=== PATIENT | female | born 1960 | race Caucasian/White ===

== ENCOUNTER 2017-10-23 17:12 | Emergency (ER) | payer OTHER ==
[~2017-10-23] VITALS: Ht 154.9 cm; Wt 79.4 kg
--- NOTE | 2017-10-23 17:53 | ER.PDOC ---
General Chief Complaint: Toothache Stated Complaint: TOOTH PAIN Time seen by MD: 17:50 Source: patient Exam Limitations: no limitations History of Present Illness Initial Comments Toothache for past couple of days. Timing/Duration: gradual Associated Symptoms: toothache, jaw pain (R) Severity: moderate Allergies: Coded Allergies: Penicillins (Verified Allergy, Unknown, MILD, 10/23/17) Past Medical History Medical History: GERD Surgical History: appendectomy Social History Smoking: non-smoker Alcohol Use: occassionally Drug Use: none Constitutional: no symptoms reported Mouth: see HPI Respiratory: no symptoms reported Cardiovascular: no symptoms reported Gastrointestinal: no symptoms reported Musculoskeletal: no symptoms reported All Other Systems: Reviewed and Negative Physical Exam General Appearance: alert, no distress Head/Neck: head nml inspection, neck nml inspection, trachea midline, no lymphadenopathy, thyroid nml Mouth: dental tenderness (right lower last molar) Ears/Nose: nml inspection Respiratory: no resp. distress, lungs clear CVS: reg. rate & rhythm, heart sounds nml Abdomen: non-tender, no organomegaly Extremities: non-tender, ROM nml Skin Exam: Normal Color, Warm/Dry NEURO/PSYCH: oriented X3, mood/effect nml Departure Time of Disposition: 17:52 Disposition: 01 HOME, SELF-CARE Impression: Primary Impression: Pain, dental Condition: Stable Referrals: PCP,UNKNOWN (PCP) PRIMARY CARE PROVIDER Additional Instructions: Tramadol Clindamycin F/U with your Dentist LALO Duration or Time Spent with Pa: 20 mins LES BASURTO MD Oct 23, 2017 17:53
[2017-10-23 18:05] VITALS: BP 151/94
== END 2017-10-23 18:05 | disposition home or self-care (01) ==
LOC: ER 17:12
DX: K08.89 Other specified disorders of teeth and supporting structures (principal); K21.9 Gastro-esophageal reflux disease without esophagitis; Z88.0 Allergy status to penicillin
CPT/HCPCS: 99283

== ENCOUNTER 2018-04-23 18:34 | Emergency (ER) | payer OTHER ==
[~2018-04-23] VITALS: Ht 162.6 cm; Wt 83.9 kg
[2018-04-23 18:50] VITALS: BP 150/100
--- NOTE | 2018-04-23 19:22 | ER.PDOC ---
General Chief Complaint: Earache Stated Complaint: EAR ACHE,SORE THROAT Time seen by MD: 19:00 Source: patient Exam Limitations: no limitations History of Present Illness Initial Comments 57 year old white female with ear discomfort, sore throat, watery nasal discharge and non productive cough for four days. No fever, no chills, no nausea and no vomiting. Timing/Duration: gradual Severity: moderate Associated Symptoms: earache, runny nose, sinus pain/drainage, sore throat, allergy Allergies: Coded Allergies: Penicillins (Verified Allergy, Unknown, MILD, 10/23/17) Constitutional: no symptoms reported EENTM: see HPI Respiratory: see HPI Cardiovascular: no symptoms reported Gastrointestinal: no symptoms reported Genitourinary: no symptoms reported Musculoskeletal: no symptoms reported Skin: no symptoms reported Psychiatric/Neurological: no symptoms reported Endocrine: no symptoms reported Hematologic/Lymphatic: no symptoms reported Past Medical History Medical History: GERD, hypertension Surgical History: appendectomy, tubal LMP (females 10-50): tubal Social History Smoking: non-smoker Alcohol Use: none Drug Use: none Physical Exam General Appearance: alert, no distress Eye: eyes nml inspection, lids & conjunct. nml, PERRL, no nystagmus Ear: ear nml Nose: rhinorrhea, mucosal edema Throat: pharyngeal erythema Neck: nml inspection, supple Respiratory: no resp.distress, breath sounds nml Abdomen: non-tender, no organomegaly CVS: reg rate & rhythm, heart sounds nml Skin: color nml, no rash, warm/dry Extremities: non-tender, nml ROM NEURO/PSYCH: CN's nml as tested Departure Time of Disposition: 19:20 Disposition: HOME, SELF-CARE Impression: Primary Impression: Allergic rhinitis Qualified Codes: J30.9 - Allergic rhinitis, unspecified Condition: Stable Referrals: PCP,UNKNOWN (PCP) PRIMARY CARE PROVIDER Additional Instructions: OTC Claritin prn RTER prn Follow up PCP Duration or Time Spent with Pa: NBA JUAREZ MD Apr 23, 2018 19:22
[2018-04-23 20:35] VITALS: BP 150/100
== END 2018-04-23 20:12 | disposition home or self-care (01) ==
LOC: ER 18:34
DX: J30.9 Allergic rhinitis, unspecified (principal); I10 Essential (primary) hypertension; K21.9 Gastro-esophageal reflux disease without esophagitis; Z88.0 Allergy status to penicillin; Z98.51 Tubal ligation status; Z90.49 Acquired absence of other specified parts of digestive tract
CPT/HCPCS: 99282

== ENCOUNTER 2018-07-08 20:44 | Emergency (ER) | payer OTHER ==
[~2018-07-08] VITALS: Ht 154.9 cm; Wt 86.2 kg
[2018-07-08 20:56] VITALS: BP 148/107
[2018-07-08] MEDS ORDERED: XYLOCAINE 2%-EPI 1:100,000 ONE (21:03)
--- NOTE | 2018-07-08 21:12 | ER.PDOC ---
General Chief Complaint: General Complaint Stated Complaint: L EAR CYST/INFECTION Time seen by MD: 20:58 Source: patient Exam Limitations: no limitations History of Present Illness Initial Comments There is a cystic, abscess formation/mass on left mastoid area, that has been growing for a few days. Has a history of previous similar condition on same area Timing/Duration: 1 week Severity: moderate Location: facial Quality: painful Identified Cause: no Allergies: Coded Allergies: Penicillins (Verified Allergy, Unknown, MILD, 10/23/17) Past Medical History Medical History: GERD, hypertension Surgical History: appendectomy, knee, tubal LMP (females 10-50): postmenopause Social History Smoking: non-smoker Alcohol Use: none Drug Use: none Constitutional: no symptoms reported EENTM: no symptoms reported Respiratory: no symptoms reported Cardiovascular: no symptoms reported Gastrointestinal: no symptoms reported Skin: see HPI All Other Systems: Reviewed and Negative Physical Exam General Appearance: alert, no distress Skin: warm/dry, nml color, abscess, tender indurated area Location: face (left), neck Character: asymmetric, erythematous With: warmth, tenderness, swelling, thickening, inflammation Extremities: non-tender, nml ROM, no edema EENT: eyes nml inspection, lips/gums nml, pharynx nml Neck: trachea midline, no swelling Respiratory: no resp. distress, breath sounds nml CVS: reg. rate & rhythm, heart sounds nml Abdomen: non-tender, no organomegaly Rectal: non-tender NEURO/PSYCH: oriented x 3, CN's nml as tested, motor nml, sensation nml, mood/ affect nml Incision and Drainage Incision and Drainage : Site: Left mastoid area Blade Size: 11 I & D Procedure: betadine prep, sterile dressing applied, irrigated cavity w /saline Departure Time of Disposition: 21:19 Disposition: 01 HOME, SELF-CARE Impression: Primary Impression: Sebaceous cyst of ear Condition: Stable Patient Instructions: Abscess, Abscess, Care After, Cyst Removal Referrals: PCP,UNKNOWN (PCP) PRIMARY CARE PROVIDER Duration or Time Spent with Pa: KENIA PALMER MD Jul 08, 2018 21:12
--- NOTE | 2018-07-08 21:15 | NUR ---
DRESSING NEOSPORIN AND BAND-AID APPLIED BEHIND LEFT EAR PER ORDERS.
[2018-07-08] MEDS ORDERED: TRIPLE ANTIBIOTIC OINTMENT TP ONE (21:18)
[2018-07-08 21:55] VITALS: BP 148/107
== END 2018-07-08 21:51 | disposition home or self-care (01) ==
LOC: ER 20:44
DX: L72.3 Sebaceous cyst (principal); K21.9 Gastro-esophageal reflux disease without esophagitis; Z88.0 Allergy status to penicillin; I10 Essential (primary) hypertension; Z98.51 Tubal ligation status; Z90.49 Acquired absence of other specified parts of digestive tract
CPT/HCPCS: 10060; 99283

== ENCOUNTER 2021-07-07 14:18 | Emergency (ER) | payer BC, OTHER ==
[~2021-07-07] VITALS: Ht 154.9 cm; Wt 81.6 kg
--- NOTE | 2021-07-07 14:30 | NUR ---
ARRIVAL PT ARRIVED TO ED WITH C/O EARACHE, SORETHROAT, CHEST PAIN WITH COUGHING AND HEADACHE FOR 3 WEEKS. PT TESTED NEGATIVE FOR COVID THIS AM. BEDSIDE MONITORS APPLIED. VITAL SIGNS STABLE. BED IN LOW LOCKED POSITION.
[2021-07-07 14:36] VITALS: BP 154/63
[2021-07-07 14:39] VITALS: BP 154/63
[2021-07-07 15:22] LABS: BASOPHIL # 0.1 10^3/uL (0.0-0.1); EOSINOPHIL # 0.2 10^3/uL (0.0-0.2); EOSINOPHIL % 2.6 % (0.0-5.0); LYMPHOCYTES # 2.23 10^3/uL1 (1.0-4.8); LYMPHOCYTES % 31.8 % (24.0-44.0); MEAN CORP HGB 27.7 pg (26-34); MONOCYTES # 0.5 10^3/uL (0.3-0.8); MONOCYTES % 6.7 % (5.0-12.0); NEUTROPHIL # 4.1 10^3/uL (1.8-7.7); NEUTROPHILS % 57.8 % (41.0-85.0); PLATELET COUNT 242 10^3/uL (150-400); RED CELL DISTRIBUTION WIDTH 12.8 % (11.5-14.5)
--- NOTE | 2021-07-07 15:22 | PCM.EKG ---
[facility] Test Date: 2021-07-07 Test Time: 15:20:03 Pat Name: NIGEL SPENCER Department: [id number] Room: Gender: F Political Organizer: KRUNAL : 1960 Requested By: ESPERANZA LEWIS Order Number: [id number] Reading MD: Esperanza Lewis Measurements Intervals [place] Rate: 55 P: 57 AL: 139 QRS: 12 QRSD: 98 T: 48 QT: 472 QTc: 452 Interpretive Statements Sinus rhythm Low voltage, precordial leads No previous ECG available for comparison Electronically Signed On 07-21-2021 8:20:41 CDT by Esperanza Lewis Please click the below link to view image of tracing.
[2021-07-07] MEDS ORDERED: NS 1000ML 1,000 ML ONE (15:23)
[2021-07-07] MEDS ORDERED: NS 1000ML 1,000 ML IV ONE (15:30)
[2021-07-07 15:38] LABS: CALCIUM 8.9 mg/dL (8.4-10.5); CARBON DIOXIDE 28.8 mmol/L (20.0-32)
--- NOTE | 2021-07-07 16:15 | ER.PDOC ---
General Chief Complaint: Sore Throat Stated Complaint: COUGH,SORE THROAT,EAR PAIN Time seen by MD: 15:50 Source: patient Exam Limitations: no limitations History of Present Illness Initial Comments Patient is a 60-year-old woman who presents the emergency department with a chief complaint I have having cough, postnasal drip, intermittent fevers for the past 2 weeks. Patient states she has had a dry cough and nasal congestion with postnasal drip. She states she is had mild nausea but denies any vomiting or diarrhea. She denies any body aches. 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 She states she has some mild shortness of breath. She denies any chest pain. She denies any black or bloody stools. She denies any dysuria, frequency, urgency, hematuria. She denies any unusual headache. She denies any difficulty with speech or swallowing. She denies any visual changes. She denies any numbness or weakness to the arms or legs. Timing/Duration: gradual, other (2 to 3 weeks, Worse today) Additional Context: She states her children were sick 3 weeks ago and she got sick about the same time. Severity: moderate Associated Symptoms: fever/chills, runny nose, sinus pain/drainage, cough, chest pain (None), mild SOB Worsen By: other (Nothing) Allergies: Coded Allergies: Penicillins (Verified Allergy, Unknown, MILD, 10/23/17) EENTM: nose congestion; denies throat pain Respiratory: cough, shortness of breath Cardiovascular: denies chest pain; lightheadedness; denies palpitations, denies syncope Gastrointestinal: denies abdominal pain, denies diarrhea, denies nausea, denies rectal bleeding, denies vomiting Genitourinary: denies dysuria, denies hematuria Musculoskeletal: denies muscle pain Skin: denies rash Psychiatric/Neurological: denies anxiety Hematologic/Lymphatic: denies easy bleeding All Other Systems: Reviewed and Negative Past Medical History Medical History: GERD Surgical History: appendectomy, knee, tubal LMP (females 10-50): postmenopause Family History Significant Family History: hypertension Social History Smoking: non-smoker Alcohol Use: none Drug Use: none Physical Exam General Appearance: alert, no distress Eye: eyes nml inspection, lids & conjunct. nml, PERRL Nose: nose nml Throat: pharynx nml (Mildly dry mucous membranes), airway nml Neck: nml inspection, supple Respiratory: no resp.distress, breath sounds nml Abdomen: non-tender, no organomegaly CVS: reg rate & rhythm, heart sounds nml Skin: color nml, no rash, warm/dry Extremities: non-tender, nml ROM, no pedal edema NEURO/PSYCH: oriented x 3, CN's nml as tested, motor nml, sensation nml, mood/affect nml Results/Orders Results/Orders Orders - ESPERANZA LEWIS MD Cbc With Auto Diff (07/07/21 15:07) Comprehensive Metabolic Panel (07/07/21 15:07) D-Dimer (07/07/21 15:07) Ekg-Routine (07/07/21 15:07) Saline Lock (07/07/21 15:07) Urinalysis (07/07/21 15:07) 0.9 % Sodium Chloride (Ns 1000ml) (07/07/21 15:30) 0.9 % Sodium Chloride (Ns 1000ml) (07/07/21 15:23) Cta Chest (07/07/21 15:57) Vital Signs Date Time Temp Pulse Resp B/P (MAP) Pulse Ox O2 Delivery O2 Flow Rate FiO2 07/07/21 17:58 98.7 59 18 128/85 (99) 93 Room Air 07/07/21 16:30 98.7 55 18 148/69 (95) 93 Room Air 07/07/21 14:39 98.7 60 18 154/63 (93) 93 Room Air 07/07/21 14:36 98.7 60 18 154/63 (93) 93 Room Air 07/07/21 14:36 98.7 60 18 93 07/07/21 14:36 98.7 60 18 Administered Medications Medications (Trade) Dose Ordered Sig/India Route PRN Reason Start Time Stop Time Status Last Admin Dose Admin Sodium Chloride 1,000 ml @ 0 mls/hr Q0M ONCE IV 07/07/21 15:30 07/07/21 15:31 DC 07/07/21 15:52 0 MLS/HR Laboratory Tests Test 07/07/21 15:20 07/07/21 16:23 White Blood Count 7.0 10^3/uL (4.5-11.0) Red Blood Count 5.23 10^6/uL (4.00-5.20) H Hemoglobin 14.5 g/dL (12.0-15.0) Hematocrit 45.8 % (36.0-46.0) Mean Corpuscular Volume 87.6 fL (78-100) Mean Corpuscular Hemoglobin 27.7 pg (26-34) Mean Corpuscular Hemoglobin Concent 31.7 g/dL (33-36.5) L Red Cell Distribution Width 12.8 % (11.5-14.5) Platelet Count 242 10^3/uL (150-400) Mean Platelet Volume 10.0 fL (7.8-11.0) Neutrophils (%) (Auto) 57.8 % (41.0-85.0) Lymphocytes (%) (Auto) 31.8 % (24.0-44.0) Monocytes (%) (Auto) 6.7 % (5.0-12.0) Neutrophils # (Auto) 4.1 10^3/uL (1.8-7.7) Lymphocytes # (Auto) 2.23 10^3/uL1 (1.0-4.8) Monocytes # (Auto) 0.5 10^3/uL (0.3-0.8) Absolute Immature Granulocyte (auto 0.01 10^3 u/L (0-2) Absolute Eosinophils (auto) 0.2 10^3/uL (0.0-0.2) Immature Granulocytes % 0.10 % (0.00-0.50) Eosinophils % 2.6 % (0.0-5.0) Basophils % 1.0 % (0.0-0.2) H Basophils # 0.1 10^3/uL (0.0-0.1) D-Dimer 0.59 mg/L (0.19-0.49) *H Sodium Level 142 mmol/L (132-145) Potassium Level 3.8 mmol/L (3.6-5.2) Chloride Level 106.0 mmol/L (96-109) Carbon Dioxide Level 28.8 mmol/L (20.0-32) Anion Gap 11.0 Blood Urea Nitrogen 12 mg/dL (7-18) Creatinine 0.89 mg/dL (0.59-1.40) Estimated GFR () 78.6 (>/=60) Est GFR (CKD-EPI)(Non-Afr Peruvian) 64.9 (>/=60) BUN/Creatinine Ratio 13.0 Glucose Level 95 mg/dL (70-110) Calcium Level 8.9 mg/dL (8.4-10.5) Total Bilirubin 0.5 mg/dL (0.2-1.0) Aspartate Amino Transferase (AST) 17 U/L (0-35) Alanine Aminotransferase (ALT) 22 U/L (12-78) Alkaline Phosphatase 88 U/L (50-136) Total Protein 6.8 g/dL (6.4-8.2) Albumin 3.1 g/dL (3.4-5.0) L Globulin 3.7 Albumin/Globulin Ratio 0.837 Urine Collection Type RANDOM Urine Color YELLOW Urine Appearance CLEAR Urine Bilirubin NEGATIVE (NEGATIVE) Urine Ketones NEGATIVE (NEGATIVE) Urine Specific Maxwell 1.020 (1.005-1.030) Urine pH 7.5 (4.5-8.0) Urine Protein NEGATIVE (NEGATIVE) Urine Urobilinogen 0.2 E.U./dL (0.2) Urine Nitrate NEGATIVE (NEGATIVE) Urine Leukocyte Esterase NEGATIVE (NEGATIVE) Urine Glucose (Auto)(UA) NEGATIVE (NEGATIVE) Urine Blood NEGATIVE (NEGATIVE) Progress Progress Patient had a Covid swab done today that was negative. Patient's EKG shows sinus rhythm with heart rate of 55, normal axis, normal intervals, no acute ST changes as interpreted by me. Her CBC was normal. Her CMP was normal. Her UA was negative. She had a D-dimer of 0.59 which is mildly elevated. Since the patient stated she was feeling somewhat dizzy, short of breath, we did do a CTA of her chest which shows no evidence of pulmonary embolism, no significant pleural parenchymal abnormalities, normal heart size, no other acute findings by radiology. I did view the patient's images.Patient was given a liter of normal saline for her dizziness. Impression patient has upper respiratory symptoms for 2 to 3 weeks. Either she has had a prolonged course of of viral upper respiratory infection or she has had 2 upper respiratory infections back to back. Since she is feeling short of breath we will go ahead and start her on albuterol and a 5-day course of prednisone. She does not appear to have STEMI, pulmonary embolism, pneumonia, pneumothorax, congestive heart failure, aortic dissection, aortic aneurysm, symptomatic anemia, sepsis, DKA, or other serious etiology of her symptoms. Patient will be discharged home. ER DEPART Departure Time of Disposition: 18:16 Disposition: 01 HOME / SELF CARE / HOMELESS Impression: Primary Impression: Upper respiratory infection Additional Impression: Dizziness Condition: Stable Referrals: PCP,UNKNOWN (PCP) PRIMARY CARE PROVIDER Additional Instructions: Return immediately ifSevere cough, difficulty breathing, persistent vomiting, persistent fever. Rest, drink lots of fluids. Use a humidifier. Albuterol and prednisone as prescribed for cough and congestion. Follow-up with primary care physician in 3 to 5 days. Duration or Time Spent with Pa: 30 min Return to Work/School Can a patient return to work?: No (Off for 2 days the may return to work) Problem Qualifiers Primary Impression: Upper respiratory infection URI type: unspecified URI Qualified Codes: J06.9 - Acute upper respiratory infection, unspecified ESPERANZA LEWIS MD Jul 07, 2021 16:15
[2021-07-07 16:30] VITALS: BP 148/69
[2021-07-07 16:31] LABS: BILIRUBIN,URINE NEGATIVE (NEGATIVE); UA COLOR YELLOW
[2021-07-07 16:32] LABS: UROBILINOGEN,URINE 0.2 E.U./dL (0.2)
--- NOTE | 2021-07-07 16:54 | DIREP ---
PROCEDURE:CTA CHEST COMPARISON:None. INDICATIONS:shortness of breath TECHNIQUE:Post contrast axial images through the chest with multiplanar MIP/3D reconstructions. FINDINGS: PULMONARY ARTERIES:Patent. LUNGS:No significant pulmonary parenchymal abnormalities. PLEURA:Normal. CARDIAC:Normal size heart and normal pulmonary vascularity. RV:LV ratio (norm <0.9): Not applicable in the absence of pulmonary embolism. THORACIC AORTA:Normal. MEDIASTINUM:Normal. THYROID:Normal. BONES:Normal. OTHER:Moderate hiatal hernia CONCLUSION:No acute visualized process. Dictated by: Jeffrey Meadows DO on 07/07/2021 at 04:48 PM
[2021-07-07 17:58] VITALS: BP 128/85
== END 2021-07-07 18:26 | disposition home or self-care (01) ==
LOC: ER 14:18
DX: J06.9 Acute upper respiratory infection, unspecified (principal); R42 Dizziness and giddiness; K21.9 Gastro-esophageal reflux disease without esophagitis; Z88.0 Allergy status to penicillin; Z90.49 Acquired absence of other specified parts of digestive tract
CPT/HCPCS: 36415; 71275; 80053; 81003; 85025; 85379; 93005; 96360; 99285; J7030; Q9965

== ENCOUNTER 2021-10-16 14:20 | Emergency (ER) | payer BC ==
[~2021-10-16] VITALS: Ht 162.6 cm; Wt 90.7 kg
[2021-10-16 14:32] VITALS: BP 154/93
[2021-10-16 14:39] VITALS: BP 154/80
[2021-10-16 14:51] LABS: BASOPHIL # 0.1 10^3/uL (0.0-0.1); BASOPHIL % 0.7 % (0.0-0.2); EOSINOPHIL # 0.1 10^3/uL (0.0-0.2); EOSINOPHIL % 1.6 % (0.0-5.0); LYMPHOCYTES # 2.26 10^3/uL1 (1.0-4.8); LYMPHOCYTES % 26.3 % (24.0-44.0); MEAN CORP HGB 27.6 pg (26-34); MONOCYTES # 0.5 10^3/uL (0.3-0.8); MONOCYTES % 5.8 % (5.0-12.0); NEUTROPHIL # 5.6 10^3/uL (1.8-7.7); NEUTROPHILS % 65.4 % (41.0-85.0); PLATELET COUNT 239 10^3/uL (150-400); RED CELL DISTRIBUTION WIDTH 13.1 % (11.5-14.5)
--- NOTE | 2021-10-16 15:02 | ER.PDOC ---
General Chief Complaint: Extremities Stated Complaint: PAIN LEFT THIGH AND LEG Time seen by MD: 15:00 Source: patient Exam Limitations: no limitations History of Present Illness Initial Comments Pain behind the left thigh and leg for 1 month. Patient denies injury. No fever or chills. Where: home Severity: moderate Exacerbated By: walking movement Relieved By: rest Allergies: Coded Allergies: Penicillins (Verified Allergy, Unknown, MILD, 10/23/17) Past Medical History Medical History: no pertinent history Surgical History: appendectomy, tubal Family History Significant Family History: no pertinent family hx Social History Smoking: non-smoker Alcohol Use: none Drug Use: none Review of Systems Constitutional: no symptoms reported EENTM: no symptoms reported Respiratory: no symptoms reported Cardiovascular: no symptoms reported Gastrointestinal: no symptoms reported Musculoskeletal: see HPI All Other Systems: Reviewed and Negative Physical Exam General Appearance: Alert, No Apparent Distress Lower Extremity: tenderness (Left thigh and calf. No swelling. No redness or erythema. No change in temperature.) Joint Exam: joints nml, nml ROM, nml gait/weight bearing Vascular: no vascular compromise, pulses full/equal Neuro/Psych: sensation nml, motor nml, oriented x3, CN's nml as tested, mood/affect nml Skin: color nml, warm/dry, no rash Back/Neck: nml inspection EENT: eyes inspection nml, ENT inspection nml, pharynx nml Respiratory: no resp distress, breath sounds nml CVS: reg rate & rhythm, heart sounds nml Abdomen: non-tender, no organomegaly, no bruit/mass Results/Orders Results/Orders Orders - LES BASURTO MD Cbc With Auto Diff (10/16/21 14:36) D-Dimer (10/16/21 14:36) Basic Metabolic Panel (10/16/21 14:36) Vital Signs Date Time Temp Pulse Resp B/P (MAP) Pulse Ox O2 Delivery O2 Flow Rate FiO2 10/16/21 14:39 98.7 81 18 154/80 (104) 98 Room Air 10/16/21 14:32 98.7 81 18 98 10/16/21 14:32 98.7 81 18 Laboratory Tests Test 10/16/21 14:46 White Blood Count 8.6 10^3/uL (4.5-11.0) Red Blood Count 4.92 10^6/uL (4.00-5.20) Hemoglobin 13.6 g/dL (12.0-15.0) Hematocrit 43.3 % (36.0-46.0) Mean Corpuscular Volume 88.0 fL (78-100) Mean Corpuscular Hemoglobin 27.6 pg (26-34) Mean Corpuscular Hemoglobin Concent 31.4 g/dL (33-36.5) L Red Cell Distribution Width 13.1 % (11.5-14.5) Platelet Count 239 10^3/uL (150-400) Mean Platelet Volume 10.0 fL (7.8-11.0) Neutrophils (%) (Auto) 65.4 % (41.0-85.0) Lymphocytes (%) (Auto) 26.3 % (24.0-44.0) Monocytes (%) (Auto) 5.8 % (5.0-12.0) Neutrophils # (Auto) 5.6 10^3/uL (1.8-7.7) Lymphocytes # (Auto) 2.26 10^3/uL1 (1.0-4.8) Monocytes # (Auto) 0.5 10^3/uL (0.3-0.8) Absolute Immature Granulocyte (auto 0.02 10^3 u/L (0-2) Absolute Eosinophils (auto) 0.1 10^3/uL (0.0-0.2) Immature Granulocytes % 0.20 % (0.00-0.50) Eosinophils % 1.6 % (0.0-5.0) Basophils % 0.7 % (0.0-0.2) H Basophils # 0.1 10^3/uL (0.0-0.1) D-Dimer 0.49 mg/L (0.19-0.49) Sodium Level 142 mmol/L (132-145) Potassium Level 3.8 mmol/L (3.6-5.2) Chloride Level 104.0 mmol/L (96-109) Carbon Dioxide Level 25.8 mmol/L (20.0-32) Glucose Level 93 mg/dL (70-110) Blood Urea Nitrogen 9 mg/dL (7-18) Creatinine 0.80 mg/dL (0.59-1.40) Calcium Level 8.4 mg/dL (8.4-10.5) Anion Gap 16.0 Estimated GFR () 88.8 (>/=60) Est GFR (CKD-EPI)(Non-Afr Uzbek) 73.4 (>/=60) BUN/Creatinine Ratio 11.0 Progress Progress CBC, chemistry and D-dimer are normal. Reviewed results with her and she voice understanding. ER DEPART Departure Time of Disposition: 15:47 Disposition: 01 HOME / SELF CARE / HOMELESS Impression: Primary Impression: Musculoskeletal leg pain Condition: Stable Referrals: PCP,UNKNOWN (PCP) PRIMARY CARE PROVIDER Additional Instructions: Tramadol Flexeril Ibuprofen Follow-up with your PCP in 2 to 3 days Return to ED if worsening pain or concerns Duration or Time Spent with Pa: 20 min Problem Qualifiers Primary Impression: Musculoskeletal leg pain Laterality: left Qualified Codes: M79.605 - Pain in left leg LES BASURTO MD Oct 16, 2021 15:02
[2021-10-16 15:03] LABS: CARBON DIOXIDE 25.8 mmol/L (20.0-32)
[2021-10-16 16:01] VITALS: BP 141/77
== END 2021-10-16 16:01 | disposition home or self-care (01) ==
LOC: ER 14:20
DX: M79.652 Pain in left thigh (principal); Z90.49 Acquired absence of other specified parts of digestive tract; Z88.0 Allergy status to penicillin
CPT/HCPCS: 36415; 80048; 85025; 85379; 99283

== ENCOUNTER 2021-11-19 12:29 | Emergency (ER) | payer BC ==
[~2021-11-19] VITALS: Ht 154.9 cm; Wt 81.6 kg
[2021-11-19 15:45] VITALS: BP 133/92
--- NOTE | 2021-11-19 18:07 | ER.PDOC ---
General Chief Complaint: Cough/Congestion Stated Complaint: COUGH,HEADACHE,EARACHE Time seen by MD: 18:05 Source: patient Exam Limitations: no limitations History of Present Illness Initial Comments This is a 60-year-old female comes to the emergency department with ear pain, throat pain and headache and cough for the past several days. 10 days ago she was diagnosed with COVID-19. She states that she has not much better and for this reason she comes to the emergency department for evaluation. She denies any difficulty breathing. Allergies: Coded Allergies: Penicillins (Verified Allergy, Unknown, MILD, 10/23/17) Constitutional: denies no symptoms reported, denies see HPI, denies chills, denies diaphoresis, denies fever, denies malaise, denies weakness, denies other EENTM: denies no symptoms reported, denies see HPI, denies eye pain, denies blurred vision, denies tearing, denies double vision, denies ear pain, denies ear discharge, denies nose pain, denies nose congestion, denies throat pain, denies throat swelling, denies mouth pain, denies mouth swelling, denies other Respiratory: denies no symptoms reported, denies see HPI, denies cough, denies orthopnea, denies shortness of breath, denies SOB with exertion, denies SOB at rest, denies stridor, denies wheezing, denies other Cardiovascular: denies no symptoms reported, denies see HPI, denies chest pain, denies edema, denies irregular heart rate, denies lightheadedness, denies palpitations, denies syncope, denies other Gastrointestinal: denies no symptoms reported, denies see HPI, denies abdomen distended, denies abdominal pain, denies blood streaked bowels, denies constipated, denies diarrhea, denies difficulty swallowing, denies nausea, denies poor appetite, denies poor fluid intake, denies rectal bleeding, denies vomiting, denies other Genitourinary: denies no symptoms reported, denies see HPI, denies burning, denies dysuria, denies discharge, denies frequency, denies flank pain, denies hematuria, denies incontinence, denies pain, denies urgency, denies other Musculoskeletal: denies no symptoms reported, denies see HPI, denies back pain, denies gout, denies joint pain, denies joint swelling, denies muscle pain, denies muscle stiffness, denies neck pain, denies other Skin: denies no symptoms reported, denies see HPI, denies change in color, denies change in hair/nails, denies dryness, denies lesions, denies lumps, denies rash, denies other Psychiatric/Neurological: denies no symptoms reported, denies see HPI, denies anxiety, denies depressed, denies emotional problems, denies headache, denies numbness, denies paresthesia, denies pre-existing deficit, denies seizure, denies tingling, denies tremors, denies weakness, denies other Endocrine: denies no symptoms reported, denies see HPI, denies excessive sweating, denies flushing, denies intolerance to cold, denies intolerance to heat, denies increased hunger, denies increased thrist, denies increased urine, denies unexplained weight gain, denies unexplaned weight loss, denies other Hematologic/Lymphatic: denies no symptoms reported, denies see HPI, denies anemia, denies blood clots, denies easy bleeding, denies easy bruising, denies swollen glands, denies other All Other Systems: Reviewed and Negative Past Medical History Medical History: no pertinent history Surgical History: appendectomy, tubal Social History Alcohol Use: none Drug Use: none Physical Exam General Appearance: alert, no distress Eye: eyes nml inspection, lids & conjunct. nml, PERRL, no nystagmus Ear: ear nml Nose: nose nml Throat: pharynx nml, airway nml Neck: nml inspection, supple Respiratory: no resp.distress, breath sounds nml Abdomen: non-tender, no organomegaly CVS: reg rate & rhythm, heart sounds nml Skin: color nml, no rash, warm/dry Extremities: non-tender, nml ROM, no pedal edema NEURO/PSYCH: oriented x 3, CN's nml as tested, motor nml, sensation nml, mood/affect nml Results/Orders Results/Orders Orders - BIRDIE CHAMBERS MD Influenza A&B (11/19/21 15:51) Strep Screen (11/19/21 17:00) Vital Signs Date Time Temp Pulse Resp B/P (MAP) Pulse Ox O2 Delivery O2 Flow Rate FiO2 11/19/21 15:45 97.7 75 20 11/19/21 15:45 97.7 75 20 11/19/21 15:45 97.7 75 20 Laboratory Tests Test 11/19/21 11:22 11/19/21 15:40 Influenza Type A Antigen NEGATIVE (NEG) Influenza Type B Antigen NEGATIVE (NEG) Group A Streptococcus Screen NEGATIVE (NEGATIVE) ER DEPART Departure Time of Disposition: 18:06 Disposition: 01 HOME / SELF CARE / HOMELESS Impression: Primary Impression: Acute upper respiratory infection Condition: Stable Patient Instructions: Upper Respiratory Infection, Adult Referrals: PCP,UNKNOWN (PCP) PRIMARY CARE PROVIDER Additional Instructions: Drink plenty of fluids, take ibuprofen and/or Tylenol for fevers. Do not drive or drink alcohol while taking Cheratussin AC. Duration or Time Spent with Pa: Unknown BIRDIE CHAMBERS MD Nov 19, 2021 18:07
== END 2021-11-19 18:14 | disposition home or self-care (01) ==
LOC: ER 12:29
DX: J06.9 Acute upper respiratory infection, unspecified (principal); Z90.49 Acquired absence of other specified parts of digestive tract; Z88.0 Allergy status to penicillin
CPT/HCPCS: 87070; 87804; 87880; 99283

== ENCOUNTER 2022-08-02 08:32 | Emergency (ER) | payer BC ==
[~2022-08-02] VITALS: Ht 154.9 cm; Wt 85.7 kg
[2022-08-02 08:50] VITALS: BP 144/92
--- NOTE | 2022-08-02 09:03 | ER.PDOC ---
General Chief Complaint: Requesting Medical Care Stated Complaint: HEADACHE,CHILLS Time seen by MD: 09:01 Source: patient Exam Limitations: no limitations History of Present Illness Initial Comments Headache, sore throat, chills and earache for 1 day. No fever. No cough or runny nose. Timing/Duration: gradual Severity: moderate Associated Symptoms: fever/chills, earache, sore throat, headache Allergies: Coded Allergies: Penicillins (Verified Allergy, Unknown, MILD, 10/23/17) Constitutional: no symptoms reported EENTM: see HPI Respiratory: no symptoms reported Cardiovascular: no symptoms reported Gastrointestinal: no symptoms reported All Other Systems: Reviewed and Negative Past Medical History Medical History: no pertinent history Surgical History: appendectomy, tubal Family History Significant Family History: no pertinent family hx Social History Smoking: non-smoker Alcohol Use: none Drug Use: none Physical Exam General Appearance: alert, no distress Eye: eyes nml inspection, lids & conjunct. nml, PERRL, no nystagmus Ear: ear nml Nose: nose nml Throat: pharynx nml, airway nml Neck: nml inspection, supple Respiratory: no resp.distress, breath sounds nml Abdomen: non-tender, no organomegaly CVS: reg rate & rhythm, heart sounds nml Skin: color nml, no rash, warm/dry Extremities: non-tender, nml ROM, no pedal edema NEURO/PSYCH: oriented x 3, CN's nml as tested, motor nml, sensation nml, mood/affect nml Results/Orders Results/Orders Orders - LES BASURTO MD Strep Screen (08/02/22 08:41) Influenza A&B (08/02/22 08:41) Covid19 Antigen Wendy Karime (08/02/22 08:41) Vital Signs Date Time Temp Pulse Resp B/P (MAP) Pulse Ox O2 Delivery O2 Flow Rate FiO2 08/02/22 08:50 98.3 111 14 92 Room Air* 0 21 08/02/22 08:50 98.3 111 14 92 Laboratory Tests Test 08/02/22 00:00 Influenza Type A Antigen NEGATIVE (NEG) Influenza Type B Antigen NEGATIVE (NEG) SARS-CoV-2 Antigen (Rapid) NEGATIVE (NEGATIVE) Group A Streptococcus Screen NEGATIVE (NEGATIVE) Progress Progress Patient is negative for flu, strep and COVID ER DEPART Departure Time of Disposition: 09:17 Disposition: 01 HOME / SELF CARE / HOMELESS Impression: Primary Impression: Viral upper respiratory infection Condition: Stable Referrals: PCP,UNKNOWN (PCP) PRIMARY CARE PROVIDER Additional Instructions: Tylenol Chloraseptic spray [id number] as directed Okay to return to work tomorrow Follow-up with your PCP 1 week Return to ED if worsening symptoms or concerns Duration or Time Spent with Pa: 10 min LES BASURTO MD Aug 02, 2022 09:03
== END 2022-08-02 09:29 | disposition home or self-care (01) ==
LOC: ER 08:32
DX: J06.9 Acute upper respiratory infection, unspecified (principal); Z20.822 Contact with and (suspected) exposure to COVID-19; H92.09 Otalgia, unspecified ear; Z88.0 Allergy status to penicillin; Z90.49 Acquired absence of other specified parts of digestive tract
CPT/HCPCS: 87070; 87426; 87804; 87880; 99283

== ENCOUNTER → 2022-12-26 | Outpatient (CLI) | payer BC ==
--- NOTE | 2022-12-26 19:24 | DIREP ---
PROCEDURE:CHEST 2 VIEWS COMPARISON:[facility], CR, XRAY CHEST 2 VWS, 08/04/2018, 10:52 AM. INDICATIONS:J06.9 ACUTE UPPER RESPIRATORY INFECTION, R05.9 COUGH, R06.2 WHEEZING FINDINGS: LUNGS/PLEURA:No significant pulmonary parenchymal abnormalities. No effusions. VASCULATURE:Normal. Unremarkable pulmonary vasculature. CARDIAC:Normal. No cardiac silhouette abnormality or cardiomegaly. MEDIASTINUM:Normal. No visible mass or adenopathy. BONES:Normal. No fracture or visible bony lesion. OTHER:Moderate size hiatal hernia is seen. CONCLUSION:No infiltrates or acute cardiopulmonary abnormalities are seen. A moderate size hiatal hernia is noted. Dictated by: Surinder Rene M.D. on 12/26/2022 at 07:22 PM
== END | disposition home or self-care (01) ==
LOC: RAD 16:50
PROVIDERS: ATTEND Nurse Practitioner Family
DX: K44.9 Diaphragmatic hernia without obstruction or gangrene (principal); R05.9 Cough, unspecified; R06.2 Wheezing; J06.9 Acute upper respiratory infection, unspecified
CPT/HCPCS: 71046

== ENCOUNTER 2024-02-13 19:38 | Emergency (ER) | payer BC ==
[~2024-02-13] VITALS: Ht 154.9 cm; Wt 80.7 kg
[2024-02-13 19:38] VITALS: BP 140/94; PULSE 96; RESP 20; TEMP 98.1; O2SAT 99
[2024-02-13] MEDS ORDERED: SOLU-MEDROL ONE (19:59)
[2024-02-13] MEDS ORDERED: WATER 20 ML ONE (19:59)
[2024-02-13] MEDS ORDERED: TORADOL ONE (19:59)
[2024-02-13] MEDS ORDERED: ROBITUSSIN AC ONE (20:00)
[2024-02-13] MEDS: ROBITUSSIN AC PO STA (20:08)
[2024-02-13] MEDS: SOLU-MEDROL IM STA (20:08)
[2024-02-13] MEDS: TORADOL IM ONE (20:08)
[2024-02-13 20:28] LABS: INFLUENZA VIRUS A ANTIGEN NEGATIVE (NEG); INFLUENZA VIRUS B ANTIGEN NEGATIVE (NEG)
[2024-02-13 20:35] VITALS: BP 140/76; PULSE 79; RESP 20; O2SAT 98
[2024-02-13] MEDS ORDERED: BENZ200C48 PO (20:58)
[2024-02-13] MEDS ORDERED: KETO10TA PO (20:58)
[2024-02-13 21:01] VITALS: BP 123/69; PULSE 79; RESP 20; TEMP 98.1; O2SAT 98
== END 2024-02-13 21:10 | disposition home or self-care (01) ==
LOC: ER 19:38
DX: J06.9 Acute upper respiratory infection, unspecified (principal); K21.9 Gastro-esophageal reflux disease without esophagitis; F41.8 Other specified anxiety disorders; Z88.0 Allergy status to penicillin; Z90.49 Acquired absence of other specified parts of digestive tract; Z20.822 Contact with and (suspected) exposure to COVID-19
CPT/HCPCS: 99284; 71046; 87426; 96372 ×2; 87804 ×2; J0745; J1885; J2930; A4216

== ENCOUNTER 2024-05-09 13:01 | Emergency (ER) | payer BC ==
[~2024-05-09] VITALS: Ht 154.9 cm; Wt 79.4 kg
[2024-05-09 13:01] VITALS: BP 136/80; PULSE 75; RESP 18; TEMP 98; O2SAT 97
[~2024-05-09 13:01] MED LIST: BENZ200C48 PO; KETO10TA PO
[2024-05-09 13:41] LABS: INFLUENZA VIRUS A ANTIGEN NEGATIVE (NEG); INFLUENZA VIRUS B ANTIGEN NEGATIVE (NEG)
[2024-05-09] MEDS ORDERED: DECADRON ONE (13:57)
[2024-05-09 13:58] VITALS: BP 128/64; PULSE 63; RESP 18; TEMP 98; O2SAT 97
[2024-05-09] MEDS ORDERED: TORADOL ONE (13:58)
[2024-05-09] MEDS: TORADOL IM STA (14:00)
[2024-05-09] MEDS: DECADRON IM STA (14:00)
[2024-05-09] MEDS ORDERED: DEXA4TAB PO (14:03)
[2024-05-09] MEDS ORDERED: KETO10TA PO (14:03)
== END 2024-05-09 14:15 | disposition home or self-care (01) ==
LOC: ER 13:07
DX: J06.9 Acute upper respiratory infection, unspecified (principal); B97.89 Other viral agents as the cause of diseases classified elsewhere; K21.9 Gastro-esophageal reflux disease without esophagitis; Z88.0 Allergy status to penicillin; Z90.49 Acquired absence of other specified parts of digestive tract; Z20.822 Contact with and (suspected) exposure to COVID-19
CPT/HCPCS: 99284; 87426; 96372 ×2; 87070; 87880; 87804 ×2; J1100; J1885

== ENCOUNTER 2024-06-15 18:47 | Emergency (ER) | payer BC ==
[~2024-06-15] VITALS: Ht 152.4 cm; Wt 81.6 kg
[~2024-06-15 18:47] MED LIST changes: +DEXA4TAB PO
[2024-06-15 19:00] VITALS: BP 128/90; PULSE 88; RESP 18; TEMP 98.5; O2SAT 5
[2024-06-15] MEDS ORDERED: TETRACAINE HCL ONE (19:15)
[2024-06-15] MEDS ORDERED: FUL-GLO OP ONE (19:16)
[2024-06-15] MEDS ORDERED: TETRACAINE HCL EACHEYE ONE (19:30)
[2024-06-15 19:40] VITALS: BP 129/85; PULSE 82; RESP 18; TEMP 98.5; O2SAT 98
[2024-06-15] MEDS ORDERED: NAPH15DR4 OP (19:42)
== END 2024-06-15 19:45 | disposition home or self-care (01) ==
LOC: ER 18:47
DX: H10.13 Acute atopic conjunctivitis, bilateral (principal); K21.9 Gastro-esophageal reflux disease without esophagitis; Z79.899 Other long term (current) drug therapy; Z88.0 Allergy status to penicillin; Z90.49 Acquired absence of other specified parts of digestive tract
CPT/HCPCS: 99283

== ENCOUNTER 2024-12-16 12:27 | Emergency (ER) | payer BC ==
[~2024-12-16] VITALS: Ht 152.4 cm; Wt 86.6 kg
[~2024-12-16 12:27] MED LIST changes: +NAPH15DR4 OP
[2024-12-16 12:56] VITALS: BP_SYST 134; BP_SYST 154; BP_DIAS 90; PULSE 94; RESP 20; TEMP 97.9; O2SAT 94
[2024-12-16] MEDS ORDERED: TORADOL ONE (13:03)
[2024-12-16] MEDS: TORADOL IM STA (13:10)
== END 2024-12-16 14:10 | disposition home or self-care (01) ==
LOC: ER 12:27
DX: S99.922A Unspecified injury of left foot, initial encounter (principal); S99.912A Unspecified injury of left ankle, initial encounter; K21.9 Gastro-esophageal reflux disease without esophagitis; Z88.0 Allergy status to penicillin; Z90.49 Acquired absence of other specified parts of digestive tract; X50.1XXA Overexertion from prolonged static or awkward postures, initial encounter; Y93.01 Activity, walking, marching and hiking; Y92.89 Other specified places as the place of occurrence of the external cause; Y99.8 Other external cause status
CPT/HCPCS: 99284; 96372; 73610; 73630; J1885